=== PATIENT | female | born 1940 | race Caucasian/White ===

== ENCOUNTER → 2017-06-22 | Outpatient (CLI) | payer MEDICARE, BC ==
[~2017-06-22] MED LIST: APIX5TAB PO; ASPI-515 PO; CALC-451 PO; SOTA80TA18 PO
== END | disposition home or self-care (01) ==
LOC: CFH 09:57
PROVIDERS: ATTEND Internal Medicine
DX: Z12.31 Encounter for screening mammogram for malignant neoplasm of breast (principal); I65.23 Occlusion and stenosis of bilateral carotid arteries
CPT/HCPCS: 77063; 93880; G0202

== ENCOUNTER 2018-06-08 08:24 | Day surgery (SDC) | payer MEDICARE, BC ==
[2018-06-08] MEDS ORDERED: LIDOCAINE 1%, 20ML ONE (09:48)
== END 2018-06-08 10:56 | disposition home or self-care (01) ==
LOC: CACL 08:24
PROVIDERS: ATTEND Internal Medicine Cardiovascular Disease
DX: Z45.09 Encounter for adjustment and management of other cardiac device (principal); R55 Syncope and collapse; I12.9 Hypertensive chronic kidney disease with stage 1 through stage 4 chronic kidney disease, or unspecified chronic kidney disease; N18.2 Chronic kidney disease, stage 2 (mild); F17.210 Nicotine dependence, cigarettes, uncomplicated; I48.0 Paroxysmal atrial fibrillation; I34.0 Nonrheumatic mitral (valve) insufficiency; E78.00 Pure hypercholesterolemia, unspecified; Z79.899 Other long term (current) drug therapy; E78.5 Hyperlipidemia, unspecified; Z79.01 Long term (current) use of anticoagulants
CPT/HCPCS: 33282; C1764; J3490

== ENCOUNTER 2019-07-23 17:20 | Observation (INO) | payer MEDICARE, BC ==
[~2019-07-23] VITALS: Ht 157.5 cm; Wt 58.7 kg
[~2019-07-23 17:20] MED LIST changes: -AMLO2.5T5 PO; -ATOR40TA78 PO; -DRON400T PO; -LISI-420 PO; -METO-282 PO; -OMNIPAQUE 350 MG/ML, 75ML BOTTLE ONE
--- NOTE | 2019-07-23 17:27 | NUR ---
PHILLIP RN: EKG COMPLETED IN TRIAGE
[2019-07-23] MEDS ORDERED: SODIUM CHLORIDE FLUSH 10ML SYR IVF ONE (17:30)
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
[2019-07-23 18:06] LABS: BASOPHILS # (AUTO) 0.03 x10^3/uL (0-0.1); BASOPHILS % (AUTO) 1 % (0-1); EOSINOPHILS # (AUTO) 0.09 x10^3/uL (0-0.4); EOSINOPHILS % (AUTO) 2 % (1-7); LYMPHOCYTES # (AUTO) 1.48 x10^3/uL (1-3.4); LYMPHOCYTES % (AUTO) 27 % (22-44); MD NO; MEAN CORPUSCULAR HEMOGLOBIN 35.2 pg (27.0-34.8); MEAN CORPUSCULAR HGB CONC 33.4 g/dL (32.4-35.8); MEAN CORPUSCULAR VOLUME 105.3 fL (80-100); MEAN PLATELET VOLUME 7.7 fL (7.4-10.4); MONOCYTES # (AUTO) 0.68 x10^3/uL (0.2-0.8); MONOCYTES % (AUTO) 12 % (2-9); NEUTROPHILS # (AUTO) 3.27 x10^3/uL (1.8-6.8); NEUTROPHILS % (AUTO) 59 % (42-75); PLATELET COUNT 305 x10^3/uL (130-400); RED BLOOD COUNT 3.89 x10^6/uL (3.82-5.3); RED CELL DISTRIBUTION WIDTH 14.3 % (9.6-15.2)
[2019-07-23 18:11] LABS: ALBUMIN 3.7 g/dL (3.4-5.0); ANION GAP 6 mmol/L (5-15); CALCIUM 9.5 mg/dL (8.5-10.1); CHLORIDE 105 mmol/L (98-107)
[2019-07-23 18:17] LABS: ALANINE AMINOTRANSFERASE 21 U/L (12-78); ALKALINE PHOSPHATASE 72 U/L (45-117); BILIRUBIN,TOTAL 0.6 mg/dL (0.2-1.0); CREATININE 1.26 mg/dL (0.55-1.02); TOTAL PROTEIN 7.6 g/dL (6.4-8.2); TROPONIN I < 0.015 ng/mL (0.000-0.045)
--- NOTE | 2019-07-23 19:24 | NUR ---
TROUGHPUT RN: REGULAR DIET TRAY ORDERED/REQUESTED PER DR. ROCHA AT THIS TIME
--- NOTE | 2019-07-23 19:49 | NUR ---
PIV STARTED. VS UPDATED. PT RESTING ON [place] W/ CALL LIGHT IN REACH.
--- NOTE | 2019-07-23 20:49 | NUR ---
REPORT GIVEN TO SLIM C[place].
[2019-07-23] MEDS ORDERED: ACETAMINOPHEN 325 MG TABLET PO PRN (21:30)
[2019-07-23] MEDS ORDERED: ONDANSETRON 2MG/ML, 2ML IVPush PRN (21:30)
[2019-07-23] MEDS ORDERED: DOCUSATE 100 MG CAPSULE PO PRN (21:30)
[2019-07-23] MEDS ORDERED: hydrALAzine 20 MG/ML, 1ML IVPush PRN (21:30)
[2019-07-23] MEDS ORDERED: TEMAZEPAM 15 MG CAPSULE PO PRN (21:30)
[2019-07-23] MEDS ORDERED: LIDODERM 5% PATCH TD PRN (21:30)
[2019-07-23 21:34] VITALS: BP 159/77
[2019-07-23] MEDS: APIXABAN 5 MG TABLET PO SCH (22:03)
[2019-07-23] MEDS ORDERED: ATOR40TA78 PO (23:21)
[2019-07-23] MEDS ORDERED: METO-282 PO (23:21)
[2019-07-23] MEDS ORDERED: LISI-420 PO (23:21)
[2019-07-23] MEDS ORDERED: DRON400T PO (23:21)
[2019-07-23] MEDS ORDERED: AMLO2.5T5 PO (23:21)
[2019-07-24 00:41] LABS: TROPONIN I < 0.015 ng/mL (0.000-0.045)
[2019-07-24 02:04] VITALS: BP 112/51
[2019-07-24] MEDS ORDERED: SOTALOL 80MG TABLET PO SCH (06:00)
[2019-07-24 06:39] LABS: BASOPHILS # (AUTO) 0.04 x10^3/uL (0-0.1); BASOPHILS % (AUTO) 1 % (0-1); EOSINOPHILS # (AUTO) 0.18 x10^3/uL (0-0.4); EOSINOPHILS % (AUTO) 4 % (1-7); LYMPHOCYTES # (AUTO) 1.91 x10^3/uL (1-3.4); LYMPHOCYTES % (AUTO) 37 % (22-44); MD NO; MEAN CORPUSCULAR HEMOGLOBIN 35.2 pg (27.0-34.8); MEAN CORPUSCULAR HGB CONC 33.3 g/dL (32.4-35.8); MEAN CORPUSCULAR VOLUME 105.6 fL (80-100); MEAN PLATELET VOLUME 7.5 fL (7.4-10.4); MONOCYTES # (AUTO) 0.77 x10^3/uL (0.2-0.8); MONOCYTES % (AUTO) 15 % (2-9); NEUTROPHILS # (AUTO) 2.23 x10^3/uL (1.8-6.8); NEUTROPHILS % (AUTO) 44 % (42-75); PLATELET COUNT 272 x10^3/uL (130-400); RED BLOOD COUNT 3.76 x10^6/uL (3.82-5.3); RED CELL DISTRIBUTION WIDTH 14.3 % (9.6-15.2)
[2019-07-24 06:44] LABS: ANION GAP 8 mmol/L (5-15); CALCIUM 8.7 mg/dL (8.5-10.1); CHLORIDE 106 mmol/L (98-107)
[2019-07-24 06:48] LABS: TROPONIN I < 0.015 ng/mL (0.000-0.045)
[2019-07-24 07:38] VITALS: BP 133/77
[2019-07-24] MEDS: APIXABAN 5 MG TABLET PO SCH (08:35)
[2019-07-24] MEDS ORDERED: REGADENOSON 0.4 MG/5 ML SYRINGE ONE (08:46)
[2019-07-24] MEDS ORDERED: DRONEDARONE 400MG TABLET PO SCH (09:00)
[2019-07-24] MEDS ORDERED: CALCIUM/VITAMIN D3 250-125 TABLET PO SCH (09:00)
[2019-07-24] MEDS ORDERED: LISINOPRIL 20 MG TABLET PO SCH (09:00)
[2019-07-24] MEDS ORDERED: AMLODIPINE 2.5 MG TABLET PO SCH (09:00)
[2019-07-24] MEDS ORDERED: AMINOPHYLLINE 25 MG/ML, 10ML ONE (09:21)
[2019-07-24 13:28] VITALS: BP 138/69
[2019-07-24] MEDS ORDERED: ATORVASTATIN 20 MG TABLET PO SCH (21:00)
[2019-07-25] MEDS ORDERED: METOPROLOL SUCCINATE 25 MG TAB.ER.24H PO SCH (06:00)
[2019-07-29] MEDS ORDERED: APIX5TAB PO (09:10)
[2019-07-29] MEDS ORDERED: DENO60DI INJ (09:10)
== END 2019-07-24 17:17 | disposition home or self-care (01) ==
LOC: ED 19:42 → EDIP 20:59 → INTOOBSV 20:59 → 5SO 21:00
PROVIDERS: ADMIT Internal Medicine; ATTEND Internal Medicine
DX: R07.89 Other chest pain (principal); R91.1 Solitary pulmonary nodule; I10 Essential (primary) hypertension; E78.5 Hyperlipidemia, unspecified; I48.0 Paroxysmal atrial fibrillation; K21.9 Gastro-esophageal reflux disease without esophagitis; J04.0 Acute laryngitis; D68.59 Other primary thrombophilia; N17.0 Acute kidney failure with tubular necrosis; K90.0 Celiac disease; Z79.01 Long term (current) use of anticoagulants
CPT/HCPCS: 36415; 78452; 80048; 80053; 84484; 85025; 93005; 93017; 93306; 99284; A9502; C9898; G0378; J0280; J2785

== ENCOUNTER → 2019-07-23 | Outpatient (CLI) | payer MEDICARE, BC ==
[~2019-07-23] MED LIST changes: +AMLO2.5T5 PO; +ATOR40TA78 PO; +DRON400T PO; +LISI-420 PO; +METO-282 PO; +OMNIPAQUE 350 MG/ML, 75ML BOTTLE ONE
== END | disposition home or self-care (01) ==
LOC: CFH 10:27
PROVIDERS: ATTEND Nurse Practitioner Family
DX: J43.2 Centrilobular emphysema (principal); R91.8 Other nonspecific abnormal finding of lung field; R59.1 Generalized enlarged lymph nodes; E04.9 Nontoxic goiter, unspecified
CPT/HCPCS: 71260; Q9967

== ENCOUNTER → 2019-07-30 | Outpatient (CLI) | payer MEDICARE, BC ==
[~2019-07-30] MED LIST changes: +AMLO2.5T5 PO; +ATOR40TA78 PO; +DENO60DI INJ; +DRON400T PO; +LISI-420 PO; +METO-282 PO
== END | disposition home or self-care (01) ==
LOC: CFH 10:29
PROVIDERS: ATTEND Internal Medicine
DX: J43.9 Emphysema, unspecified (principal); R91.8 Other nonspecific abnormal finding of lung field; K21.9 Gastro-esophageal reflux disease without esophagitis; E78.00 Pure hypercholesterolemia, unspecified; I12.9 Hypertensive chronic kidney disease with stage 1 through stage 4 chronic kidney disease, or unspecified chronic kidney disease; N18.3 Chronic kidney disease, stage 3 (moderate); I70.0 Atherosclerosis of aorta; I25.10 Atherosclerotic heart disease of native coronary artery without angina pectoris; J98.4 Other disorders of lung; K44.9 Diaphragmatic hernia without obstruction or gangrene; Z79.899 Other long term (current) drug therapy
CPT/HCPCS: 71250

== ENCOUNTER 2019-07-31 09:32 | Day surgery (SDC) | payer MEDICARE, BC ==
[~2019-07-31] VITALS: Ht 157.5 cm; Wt 57.3 kg
[2019-07-31 10:53] VITALS: BP 98/58
[2019-07-31] MEDS ORDERED: LACTATED RINGERS 1,000 ML IV SCH (10:56)
[2019-07-31] MEDS ORDERED: ROCURONIUM 10MG/ML,5ML ONE (11:13)
[2019-07-31] MEDS ORDERED: PROPOFOL 10 MG/ML, 20ML ONE (11:13)
[2019-07-31] MEDS ORDERED: SUCCINYLCHOLINE 20 MG/ML, 10ML ONE (11:13)
[2019-07-31] MEDS ORDERED: LIDOCAINE-MPF 2% ,5ML ONE (11:13)
[2019-07-31] MEDS ORDERED: FENTANYL PF 100 MCG/2ML ONE (11:13)
[2019-07-31] MEDS ORDERED: EPHEDRINE 50 MG/ML, 1ML IVPush PRN (11:30)
[2019-07-31] MEDS ORDERED: HYDROmorphone 1 MG/ML, 1ML INJ IVPush PRN (11:30)
[2019-07-31] MEDS ORDERED: FENTANYL PF 100 MCG/2ML IV PRN (11:30)
[2019-07-31] MEDS ORDERED: ONDANSETRON 2MG/ML, 2ML IV PRN (11:30)
[2019-07-31] MEDS ORDERED: PROMETHAZINE 25 MG/ML, 1ML IV PRN (11:30)
[2019-07-31] MEDS ORDERED: LABETALOL 5MG/ML, 20ML IV PRN (11:30)
[2019-07-31] MEDS ORDERED: ACETAMINOPHEN 325 MG TABLET PO PRN (11:30)
[2019-07-31] MEDS ORDERED: OXYcodone 5 MG/5 ML ORAL.SOL UDC PO PRN (11:30)
[2019-07-31] MEDS ORDERED: MEPERIDINE/PF 25MG/ML,1ML IVPush PRN (11:30)
[2019-07-31] MEDS ORDERED: PHENYLEPHRINE 10 MG/ML ONE (11:40)
[2019-07-31] MEDS ORDERED: SUGAMMADEX 200 MG/2 ML IVPush ONE (11:59)
[2019-07-31] MEDS ORDERED: DEXAMETHASONE 4 MG/ML, 1ML ONE ×2 (11:59)
[2019-07-31] MEDS ORDERED: ONDANSETRON 2MG/ML, 2ML ONE (11:59)
[2019-07-31] MEDS ORDERED: EPHEDRINE 50 MG/ML, 1ML ONE (12:10)
== END 2019-07-31 14:35 | disposition home or self-care (01) ==
LOC: OUT 09:32
PROVIDERS: ATTEND Internal Medicine
DX: R91.8 Other nonspecific abnormal finding of lung field (principal); I48.91 Unspecified atrial fibrillation; I10 Essential (primary) hypertension; J43.9 Emphysema, unspecified; E03.9 Hypothyroidism, unspecified; E78.5 Hyperlipidemia, unspecified; K21.9 Gastro-esophageal reflux disease without esophagitis; E55.9 Vitamin D deficiency, unspecified; K90.0 Celiac disease; Z79.01 Long term (current) use of anticoagulants; Z79.899 Other long term (current) drug therapy; Z87.891 Personal history of nicotine dependence; Z88.8 Allergy status to other drugs, medicaments and biological substances; Z90.49 Acquired absence of other specified parts of digestive tract; Z90.710 Acquired absence of both cervix and uterus; Z98.890 Other specified postprocedural states; Z82.49 Family history of ischemic heart disease and other diseases of the circulatory system
CPT/HCPCS: 31627; 31628; 31652; 88172; 88173; 88177; 88305; 88341; 88342; J0330; J1100; J2370; J2405; J2704; J3010; J7120; 31629; 31632; 71045

== ENCOUNTER 2019-08-21 12:43 | Day surgery (SDC) | payer MEDICARE, BC ==
[~2019-08-21] VITALS: Ht 157.5 cm; Wt 57.3 kg
[~2019-08-21 12:43] MED LIST changes: +BUPIVACAINE/PF 0.5% ONE; +EPINEPHRINE 1 MG/ML, 1ML ONE
[2019-08-21 13:16] VITALS: BP 124/73
[2019-08-21] MEDS ORDERED: LACTATED RINGERS 1,000 ML IV STA (13:23)
[2019-08-21] MEDS ORDERED: LACTATED RINGERS 1,000 ML IV ONE (14:00)
[2019-08-21] MEDS ORDERED: FENTANYL PF 250 MCG/5ML ONE (14:17)
[2019-08-21] MEDS ORDERED: MIDAZOLAM 1 MG/ML, 2ML ONE (14:17)
[2019-08-21] MEDS ORDERED: PHENYLEPHRINE 10 MG/ML ONE (14:51)
[2019-08-21] MEDS ORDERED: SUCCINYLCHOLINE 20 MG/ML, 10ML ONE (15:21)
[2019-08-21] MEDS ORDERED: ONDANSETRON 2MG/ML, 2ML ONE (15:21)
[2019-08-21] MEDS ORDERED: LIDOCAINE-MPF 2% ,5ML ONE (15:21)
[2019-08-21] MEDS ORDERED: PROPOFOL 10 MG/ML, 20ML ONE (15:21)
[2019-08-21] MEDS ORDERED: CEFAZOLIN 1,000 MG ONE (15:21)
[2019-08-21] MEDS ORDERED: DEXAMETHASONE 4 MG/ML, 1ML ONE (15:21)
[2019-08-21] MEDS ORDERED: hydrALAzine 20 MG/ML, 1ML IV PRN (15:30)
[2019-08-21] MEDS ORDERED: HALOPERIDOL 5 MG/ML IV PRN (15:30)
[2019-08-21] MEDS ORDERED: ALBUTEROL SULFATE 2.5 MG/3 ML NPPB PRN (15:30)
[2019-08-21] MEDS ORDERED: FENTANYL PF 100 MCG/2ML IV PRN (15:30)
[2019-08-21] MEDS ORDERED: MEPERIDINE/PF 25MG/ML,1ML IVPush PRN (15:30)
[2019-08-21] MEDS ORDERED: OXYcodone 5 MG/5 ML ORAL.SOL UDC PO PRN (15:30)
[2019-08-21] MEDS ORDERED: ACETAMINOPHEN 325 MG TABLET PO PRN (15:30)
[2019-08-21] MEDS ORDERED: HYDROmorphone 2 MG/ML, 1ML IVPush PRN (15:30)
[2019-08-21] MEDS ORDERED: LACTATED RINGERS 1,000 ML IV SCH (15:39)
[2019-08-21] MEDS ORDERED: ONDANSETRON 2MG/ML, 2ML IVPush PRN (16:00)
[2019-08-21] MEDS ORDERED: morphine SULFATE 10 MG/ML, 1ML IVPush PRN (16:00)
[2019-08-21] MEDS ORDERED: HYDROcodone/APAP 5/325 TABLET PO PRN (16:00)
== END 2019-08-21 17:35 | disposition home or self-care (01) ==
LOC: OR 12:43
PROVIDERS: ATTEND Thoracic Surgery (Cardiothoracic Vascular Surgery)
DX: R91.8 Other nonspecific abnormal finding of lung field (principal); R59.0 Localized enlarged lymph nodes; C34.92 Malignant neoplasm of unspecified part of left bronchus or lung; C78.39 Secondary malignant neoplasm of other respiratory organs; I10 Essential (primary) hypertension; K90.0 Celiac disease; E78.00 Pure hypercholesterolemia, unspecified; M81.0 Age-related osteoporosis without current pathological fracture; Z79.01 Long term (current) use of anticoagulants; Z79.899 Other long term (current) drug therapy; Z87.891 Personal history of nicotine dependence; Z90.49 Acquired absence of other specified parts of digestive tract; Z90.710 Acquired absence of both cervix and uterus; Z98.890 Other specified postprocedural states; Z83.79 Family history of other diseases of the digestive system; Z83.3 Family history of diabetes mellitus; Z80.52 Family history of malignant neoplasm of bladder; Z82.49 Family history of ischemic heart disease and other diseases of the circulatory system
CPT/HCPCS: 39401; 88305; J0171; J0330; J0690; J1100; J2250; J2370; J2405; J2704; J3010; J7120

== ENCOUNTER → 2019-08-29 | Outpatient (CLI) | payer MEDICARE, BC ==
[~2019-08-29] MED LIST changes: -BUPIVACAINE/PF 0.5% ONE; -EPINEPHRINE 1 MG/ML, 1ML ONE
== END | disposition home or self-care (01) ==
LOC: PETCFH 08:26
PROVIDERS: ATTEND Internal Medicine
DX: R59.0 Localized enlarged lymph nodes (principal); R91.8 Other nonspecific abnormal finding of lung field; D3A.8 Other benign neuroendocrine tumors
CPT/HCPCS: 78815; A9552

== ENCOUNTER 2019-08-30 08:37 | Outpatient (CLI) | payer MEDICARE, BC | END 2019-08-30 23:59 | disposition home or self-care (01) | LOC: ROC 08:37 | PROVIDERS: ATTEND Radiology Radiation Oncology | DX: C34.30 Malignant neoplasm of lower lobe, unspecified bronchus or lung (principal) | CPT/HCPCS: G0463 ==

== ENCOUNTER → 2019-09-04 | Outpatient (CLI) | payer MEDICARE, BC ==
[~2019-09-04] MED LIST changes: +GADOTERATE 7.5 MMOL/15 ML SYR ONE
== END | disposition home or self-care (01) ==
LOC: RAD 11:53
PROVIDERS: ATTEND Radiology Radiation Oncology
DX: C79.31 Secondary malignant neoplasm of brain (principal); C34.90 Malignant neoplasm of unspecified part of unspecified bronchus or lung
CPT/HCPCS: 70553; A9575

== ENCOUNTER 2019-10-31 07:27 | Outpatient (CLI) | payer MEDICARE, BC ==
[~2019-10-31 07:27] MED LIST changes: -GADOTERATE 7.5 MMOL/15 ML SYR ONE
== END 2019-10-31 23:59 | disposition home or self-care (01) ==
LOC: ROC 07:27
PROVIDERS: ATTEND Radiology Radiation Oncology
DX: Z08 Encounter for follow-up examination after completed treatment for malignant neoplasm (principal); C34.32 Malignant neoplasm of lower lobe, left bronchus or lung
CPT/HCPCS: G0463

== ENCOUNTER → 2019-11-28 | Outpatient (CLI) | payer MEDICARE, BC ==
[~2019-11-28] MED LIST changes: +REGADENOSON 0.4 MG/5 ML SYRINGE ONE
== END | disposition home or self-care (01) ==
LOC: CVU 06:43
PROVIDERS: ATTEND Internal Medicine Cardiovascular Disease
DX: I08.3 Combined rheumatic disorders of mitral, aortic and tricuspid valves (principal); R55 Syncope and collapse; I48.91 Unspecified atrial fibrillation; E78.49 Other hyperlipidemia; I27.21 Secondary pulmonary arterial hypertension
CPT/HCPCS: 93306; 93880; J2785

== ENCOUNTER → 2020-01-22 | Outpatient (CLI) | payer MEDICARE, BC ==
[~2020-01-22] MED LIST changes: -REGADENOSON 0.4 MG/5 ML SYRINGE ONE
== END | disposition home or self-care (01) ==
LOC: PETCFH 09:43
PROVIDERS: ATTEND Internal Medicine Hematology & Oncology
DX: C34.82 Malignant neoplasm of overlapping sites of left bronchus and lung (principal); I25.10 Atherosclerotic heart disease of native coronary artery without angina pectoris; R59.0 Localized enlarged lymph nodes; I70.0 Atherosclerosis of aorta
CPT/HCPCS: 78815; A9552

== ENCOUNTER 2020-01-29 13:53 | Outpatient (CLI) | payer MEDICARE, BC ==
[2020-01-29] MEDS ORDERED: GADOTERATE 7.5 MMOL/15 ML SYR ONE (14:52)
== END 2020-01-29 23:59 | disposition home or self-care (01) ==
LOC: RAD 13:53
PROVIDERS: ATTEND Radiology Radiation Oncology
DX: C79.31 Secondary malignant neoplasm of brain (principal); C34.32 Malignant neoplasm of lower lobe, left bronchus or lung; I67.1 Cerebral aneurysm, nonruptured
CPT/HCPCS: 70553; A9575

== ENCOUNTER → 2020-01-30 | Outpatient (CLI) | payer MEDICARE, BC | END | disposition home or self-care (01) | LOC: ROC 08:32 | PROVIDERS: ATTEND Radiology Radiation Oncology | DX: C34.32 Malignant neoplasm of lower lobe, left bronchus or lung (principal) | CPT/HCPCS: G0463 ==

== ENCOUNTER → 2020-02-05 | Outpatient (CLI) | payer MEDICARE, BC ==
[~2020-02-05] MED LIST changes: +OMNIPAQUE 350 MG/ML, 75ML BOTTLE ONE
== END | disposition home or self-care (01) ==
LOC: RAD 12:22
PROVIDERS: ATTEND Radiology Radiation Oncology
DX: C34.32 Malignant neoplasm of lower lobe, left bronchus or lung (principal); I67.1 Cerebral aneurysm, nonruptured
CPT/HCPCS: 70496; Q9967

== ENCOUNTER → 2020-04-08 | Outpatient (CLI) | payer MEDICARE, BC ==
[~2020-04-08] MED LIST changes: -OMNIPAQUE 350 MG/ML, 75ML BOTTLE ONE
== END | disposition home or self-care (01) ==
LOC: ROC 08:40
PROVIDERS: ATTEND Radiology Radiation Oncology
DX: C34.90 Malignant neoplasm of unspecified part of unspecified bronchus or lung (principal)
CPT/HCPCS: G0463

== ENCOUNTER → 2020-06-22 | Outpatient (CLI) | payer MEDICARE, BC | END | disposition home or self-care (01) | LOC: ROC 07:27 | PROVIDERS: ATTEND Radiology Radiation Oncology | DX: Z08 Encounter for follow-up examination after completed treatment for malignant neoplasm (principal); Z85.118 Personal history of other malignant neoplasm of bronchus and lung | CPT/HCPCS: G2012 ==

== ENCOUNTER → 2020-09-14 | Outpatient (CLI) | payer MEDICARE, BC ==
[~2020-09-14] MED LIST changes: -ASPI-515 PO; +ASPI-963 PO; -LISI-420 PO; +LISI20TA21 PO
== END | disposition home or self-care (01) ==
LOC: CFH 10:41
PROVIDERS: ATTEND Radiology Radiation Oncology
DX: C34.32 Malignant neoplasm of lower lobe, left bronchus or lung (principal); I10 Essential (primary) hypertension; J47.9 Bronchiectasis, uncomplicated; R91.8 Other nonspecific abnormal finding of lung field
CPT/HCPCS: 71250

== ENCOUNTER → 2020-09-17 | Outpatient (CLI) | payer MEDICARE, BC | END | disposition home or self-care (01) | LOC: ROC 08:21 | PROVIDERS: ATTEND Radiology Radiation Oncology | DX: Z08 Encounter for follow-up examination after completed treatment for malignant neoplasm (principal); Z85.118 Personal history of other malignant neoplasm of bronchus and lung; I10 Essential (primary) hypertension | CPT/HCPCS: G0463 ==

== ENCOUNTER 2020-10-08 09:49 | Outpatient (CLI) | payer MEDICARE, BC | END 2020-10-08 23:59 | disposition home or self-care (01) | LOC: PETCFH 09:49 | PROVIDERS: ATTEND Radiology Radiation Oncology | DX: C34.32 Malignant neoplasm of lower lobe, left bronchus or lung (principal); R59.1 Generalized enlarged lymph nodes | CPT/HCPCS: 78815; A9552 ==

== ENCOUNTER 2020-10-13 05:55 | Day surgery (SDC) | payer MEDICARE, BC ==
[~2020-10-13] VITALS: Ht 157.5 cm; Wt 47.0 kg
[~2020-10-13 05:55] MED LIST changes: -DRON400T PO; +DRON400T6 PO
[2020-10-13 07:11] VITALS: BP 123/75
[2020-10-13] MEDS ORDERED: BIOTIN PO (07:20)
[2020-10-13] MEDS ORDERED: CHOL10003 PO (07:20)
[2020-10-13] MEDS ORDERED: MULT-709 PO (07:20)
[2020-10-13] MEDS ORDERED: MAGNESIUM PO (07:20)
[2020-10-13] MEDS ORDERED: OMEP40CA42 PO (07:20)
[2020-10-13] MEDS ORDERED: SODIUM CHLORIDE 0.9% 1,000 ML IV SCH (07:30)
[2020-10-13 07:43] LABS: INTERNATIONAL NORMALIZED RATIO 1.05 (0.93-1.1); PROTHROMBIN TIME 11.2 Seconds (9.6-11.5)
[2020-10-13] MEDS ORDERED: FLUMAZENIL 0.1 MG/1 ML, 5ML ONE (07:51)
[2020-10-13] MEDS ORDERED: NALOXONE 1 MG/ML, 2ML ONE (07:51)
[2020-10-13] MEDS ORDERED: FENTANYL PF 100 MCG/2ML ONE (07:51)
[2020-10-13] MEDS ORDERED: MIDAZOLAM 1 MG/ML, 5ML ONE (07:51)
== END 2020-10-13 10:06 | disposition home or self-care (01) ==
LOC: OUT 05:55
PROVIDERS: ATTEND Radiology Radiation Oncology
DX: D38.1 Neoplasm of uncertain behavior of trachea, bronchus and lung (principal); D3A.8 Other benign neuroendocrine tumors; I48.91 Unspecified atrial fibrillation; Z79.01 Long term (current) use of anticoagulants; Z79.899 Other long term (current) drug therapy; Z85.118 Personal history of other malignant neoplasm of bronchus and lung; Z87.891 Personal history of nicotine dependence; Z88.8 Allergy status to other drugs, medicaments and biological substances
CPT/HCPCS: 36415; 47000; 77012; 85610; 88307; 88341; 88342; 88360; 99156; J2250; J3010; J7030; J2310

== ENCOUNTER → 2020-10-20 | Outpatient (CLI) | payer MEDICARE, BC ==
[~2020-10-20] MED LIST changes: +BIOTIN PO; +CHOL10003 PO; +MAGNESIUM PO; +MULT-709 PO; +OMEP40CA42 PO
== END | disposition home or self-care (01) ==
LOC: ROC 07:36
PROVIDERS: ATTEND Radiology Radiation Oncology
DX: C34.32 Malignant neoplasm of lower lobe, left bronchus or lung (principal); C79.31 Secondary malignant neoplasm of brain; C78.7 Secondary malignant neoplasm of liver and intrahepatic bile duct; I10 Essential (primary) hypertension; Z79.899 Other long term (current) drug therapy; Z79.01 Long term (current) use of anticoagulants; Z87.891 Personal history of nicotine dependence
CPT/HCPCS: G0463

== ENCOUNTER 2020-12-25 08:05 | Outpatient (CLI) | payer MEDICARE, BC ==
[~2020-12-25 08:05] MED LIST changes: -OMEP40CA42 PO; +OMEP40CA8 PO
== END 2020-12-25 23:59 | disposition home or self-care (01) ==
LOC: ROC 08:05
PROVIDERS: ATTEND Radiology Radiation Oncology
DX: Z08 Encounter for follow-up examination after completed treatment for malignant neoplasm (principal); Z85.841 Personal history of malignant neoplasm of brain
CPT/HCPCS: G0463

== ENCOUNTER 2021-02-26 09:12 | Outpatient (CLI) | payer MEDICARE, BC | END 2021-02-26 23:59 | disposition home or self-care (01) | LOC: ROC 09:12 | PROVIDERS: ATTEND Radiology Radiation Oncology | DX: Z08 Encounter for follow-up examination after completed treatment for malignant neoplasm (principal); Z85.841 Personal history of malignant neoplasm of brain; Z85.118 Personal history of other malignant neoplasm of bronchus and lung | CPT/HCPCS: G0463 ==